=== PATIENT | male | born 1995 | race Caucasian/White ===

== ENCOUNTER 2024-12-10 07:56 | Outpatient (CLI) | payer OTHER, SELFPAY | END 2024-12-10 07:57 | disposition home or self-care (01) | PROVIDERS: PCP Student in an Organized Health Care Education/Training Program; Visit Provider Family Medicine | DX: M51.360 Other intervertebral disc degeneration, lumbar region with discogenic back pain only (principal); M54.16 Radiculopathy, lumbar region; M51.26 Other intervertebral disc displacement, lumbar region | CPT/HCPCS: 62323; J0702; Q9966 ==